=== PATIENT | male | born 1955 | race Two or more races ===

== ENCOUNTER 2016-06-04 09:25 | Inpatient (IN) | payer OTHER ==
[~2016-06-04] VITALS: Ht 165.1 cm; Wt 71.0 kg
[2016-06-04 09:31] VITALS: BP 180/114; PULSE 86; RESP 12; O2SAT 98
--- NOTE | 2016-06-04 09:49 | ED.REPORT ---
HPI-Chest Pain 40 and Over Date of Service Jun 04, 2016 ED Provider: The patient is a 61 year old male with history of hypertension who presents to the emergency department complaining of left-sided chest pain that has been ongoing over the last 2 weeks. His pain does not radiate anywhere else. His pain is worse with exertion. He has also noticed shortness of breath and bilateral shoulder pain.He denies abdominal pain, nausea, vomiting, diaphoresis , fever or chills. He does not smoke tobacco. He denies history of heart problems. Nursing Notes Stated Complaint: POSSIBLE HEART PROBLEMS Chief Complaint: Chest Pain Nursing Notes Reviewed: Yes Allergies: Coded Allergies: No Known Allergies (Unverified , 06/04/16) General Time Seen by MD: 09:49 Chief Complaint Chest pain Hx Obtained From: Patient Arrived By: Walk-in Sudden in Onset?: No Onset Occurred: More than a week ago... (2 weeks) Symptom Duration: Since onset Location: : Chest left Quality: Painful Radiation: : Shoulder left: Shoulder right Severity: Current: Pain level 5 out of 10 Severity: Maximum: Pain level 8 out of 10 Recent Healthcare: No recent hospitalization, Recent doctor visit Similar Sx Previous: No Risk Factors PERC Rule Age 50 or over PERC Result: One or more crit "Yes", PERC rule not satisfied Past Medical History Past Medical History Hypertension Arthritis Family History Noncontributory Smoking History Never Smoker Social History Other Social History: Local resident Occupation Works at [employer] Ambulatory Status Independent Review of Systems Constitutional: Denies: Chills, Fever Respiratory: Reports: Shortness of breath Cardiovascular: Reports: Chest pain GI: Denies: Abdominal pain, Nausea, Vomiting Skin: Denies Diaphoresis Complete sys rev & neg: except as marked. Physical Exam Initial Vital Signs Vital Signs (First) Date Time Temp Pulse Resp B/P Pulse Ox O2 Delivery O2 Flow Rate FiO2 06/04/16 09:31 36.4 86 12 180/114 98 Room Air Initial VS: Reviewed Head / Eyes: Atraumatic, Normocephalic, PERRL ENT: Mucous membranes moist, Conjunctiva normal, No scleral icterus Neck: Supple, Non-tender, Full range of motion Lymphatic: No lymphadenopathy Extremities: Vascular intact, Neuro intact, No swelling, No tenderness Skin: Warm, Dry, No cyanosis Neurologic: Alert, Oriented, Nonfocal Psychiatric: Mood/affect normal, Behavior normal, Normal thought content General/Constitutional: Awake, Alert, No acute distress, Well appearing, Cooperative Respiratory / Chest: Breath sounds NL, Breath sounds = bilat, No respiratory distress, No rales, No rhonchi, No wheezing, No stridor Left pectoral muscle tenderness to palpation. Cardiovascular: Heart rate NL, Regular rhythm, Heart sounds NL, No gallop, No murmurs, No rubs, Peripheral circulation NL, Pulses = bilaterally, No gross BP differential Abdomen: Atraumatic, Soft, Non-tender, McBurney's non-tender, No guarding, No rebound, BS normoactive, No distention, No hernia, No palpable mass Interpretation & Diagnostics Lab Results Interpretation Result Diagram: 06/04/16 1000 06/04/16 1000 Test 06/04/16 10:00 06/04/16 12:00 06/04/16 14:10 White Blood Count 10.5th/mm3 (3.8-10.1) Red Blood Count 5.00mil/mm3 (4.40-5.80) Hemoglobin 14.4g/dL (13.8-17.2) Hematocrit 43.8% (41.0-50.0) Mean Corpuscular Volume 87.6fL (81-100) Mean Corpuscular Hemoglobin 28.8pg (27.0-35.0) Mean Corpuscular Hemoglobin Concent 32.9% (32.0-37.0) Red Cell Distribution Width 13.1% (12.3-15.4) Platelet Count 231bil/L (150-400) Neutrophils (%) (Auto) 51.5% (40-74) Lymphocytes (%) (Auto) 37.2% (14-46) Monocytes (%) (Auto) 7.7% (4-12) Eosinophils (%) (Auto) 2.7% (0-5) Basophils (%) (Auto) 0.5% (0-3) D-Dimer 1.1mg/L (<0.50) Sodium Level 140mEq/L (134-144) Potassium Level 3.8mEq/L (3.5-5.2) Chloride Level 102mEq/L (97-108) Carbon Dioxide Level 25mmol/L (18-29) Blood Urea Nitrogen 15mg/dL (8-27) Creatinine 0.95mg/dL (0.76-1.27) Estimat Glomerular Filtration Rate 85mL/min (>59) Glucose Level 112mg/dL (60-99) Calcium Level 9.4mg/dL (8.5-10.1) Magnesium Level 2.3mg/dL (1.6-2.6) Total Bilirubin 0.5mg/dL (0.0-1.2) Aspartate Amino Transf (AST/SGOT) 25U/L (0-50) Alanine Aminotransferase (ALT/SGPT) 24U/L (0-44) Alkaline Phosphatase 121U/L (25-160) Pro-B-Type Natriuretic Peptide 25.61pg/mL (0-210) Total Protein 7.6g/dL (6.4-8.4) Albumin 4.0g/dL (3.4-5.0) Troponin T 0.010ug/L (0.0-0.011) ECG Interpretation ECG Interpretation: Normal sinus rhythm with a rate of 86 RSR prime pattern in V1 and V2 No acute ischemic changes Time: 09:59 Interpreted by: ED physician ECG Interpretation: Unchanged from prior EKG Time: 11:38 Interpreted by: ED physician X-Ray Chest Interpretation Chest Xray Interpretation: IMPRESSION: No acute cardiopulmonary disease. Dictated by: Jay Mena M.D. on 06/04/2016 at 11:15 Interpretation / Wet Read by: Interpret - Radiologist CT Chest Interpretation IMPRESSION: 1. No evidence for central pulmonary embolism. 2. Filling defects in the central right inferior pulmonary vein suspicious for pulmonary venous thrombosis. 3. Ectatic ascending thoracic aorta which tapers to normal caliber in the distal aortic arch. The result was discussed with Dr. Kincaid prior to dictation. Dictated by: Jay Mena M.D. on 06/04/2016 at 12:32 Study type: CT pulm angiogram Interpretation / Wet Read by: Interpret - Radiologist, Discussed w radiologist Re-Eval/Medical Decision Med Decision/Clinical Course Chest pain, noted to have pulmonary vein thrombosis which will need anticoagulation and management similar to proximal deep vein thrombosis. Heparinized in the ER. Source of Hx: Old records Time of Eval: 10:44 Re-Evaluation/Progress Note: The patient's pain improved with Morphine and Nitroglycerin. Time of Eval: 11:32 Re-Evaluation/Progress Note: Discussed plan for CT. The patient would like something for anxiety before the scan. Time of Eval: 13:30 Re-Evaluation/Progress Note: Rechecked the patient. Discussed results, diagnosis, and plan for admission. All questions were addressed. Consultation #1: Referral / Consult Name: Juarez Mckinley MD Consulted With: Cardiology Call Returned at: 13:26 Mathematical Sciences Professor: Agrees with eval, Agrees with plan Note: He recommends admission and anticoagulation. Consultation #2: Referral / Consult Name: Nilesh Cook MD Consulted With: Hospitalist Requested Call at: 13:31 Call Returned at: 13:37 Mathematical Sciences Professor: Will see patient, Agrees with eval, Agrees with plan, Accepts admit Counseled Regarding: Diagnosis, Lab results, Need for admission Discharge & Departure Primary Impression: Thrombus of pulmonary vein Additional Impression: Chest pain Chest pain type: unspecified Qualified Code: R07.9 - Chest pain, unspecified Disposition: ADMITTED TO HOSPITAL Discharge Condition All VS Reviewed: Yes Condition: Stable Crit Care Except Billable Proc Time Spent: 30-74 minutes Services Performed: Patient management by me, Time spent at bedside, Reviewing test results Critical Care Notes: See MDM Scribe Attestation Portions of this note were transcribed by Jaymie Jones. I, Dr. Kincaid personally performed the history, physical exam and medical decision-making; I reviewed and confirmed the accuracy of the information in the transcribed note. Signed by: Gudelia Galaviz, 06/04/2016 and 1345. Tam Kincaid DO Jun 04, 2016 09:49 Jaymie Jones Jun 04, 2016 09:52
[2016-06-04] MEDS ORDERED: Ondansetron 2 mg/mL 2 mL Inj IVPUSH ONE (10:00)
[2016-06-04 10:12] LABS: BASOPHILS % (AUTO) 0.5 % (0-3); EOSINOPHILS % (AUTO) 2.7 % (0-5); MONOCYTES % (AUTO) 7.7 % (4-12); Mean Corpuscular Hemoglobin 28.8 pg (27.0-35.0); Mean Corpuscular Volume 87.6 fL (81-100); NEUTROPHILS % (AUTO) 51.5 % (40-74); Platelet Count 231 bil/L (150-400)
[2016-06-04 10:40] LABS: TROPONIN T 0.01 ug/L (0.0-0.011)
[2016-06-04 10:51] LABS: Magnesium 2.3 mg/dL (1.6-2.6)
--- NOTE | 2016-06-04 11:17 | DRSVH ---
PROCEDURE: X-RAY CHEST ONE VIEW, PORTABLE ([id number]) INDICATIONS: chest pain TECHNIQUE: One view of the chest was acquired. COMPARISON: None. FINDINGS: Surgical changes and devices: None. Lungs and pleura: No pleural effusions or pneumothorax. Lungs are clear. Mediastinum: Mediastinal contours appear normal. Heart size is normal. Bones and chest wall: No suspicious bony lesions. Overlying soft tissues appear unremarkable. IMPRESSION: No acute cardiopulmonary disease. Dictated by: Jay Mena M.D. on 06/04/2016 at 11:15 Approved by: Jay Mena M.D. on 06/04/2016 at 11:15
[2016-06-04] MEDS ORDERED: Ondansetron 2 mg/mL 2 mL Inj IVPUSH PRN ×3 (12:35→14:00)
--- NOTE | 2016-06-04 12:56 | DRSVH ---
PROCEDURE: CT ANGIO CHEST PULMONARY EMBOLISM ([id number]) INDICATIONS: 61 year-old man with chest pain, elevated ddimer. TECHNIQUE: After the administration of intravenous contrast, 2 mm thick sections acquired from the pulmonary api ho to the posterior costophrenic angles. 3-dimensional maximum intensity projection (MIP) coronal a nd sagittal reformats were then acquired through the thorax. For radiation dose reduction, the follo wing was used: automated exposure control, adjustment of mA and/or kV according to patient size. COMPARISON: [facility], CR, XR CHEST 1VW (PORTABLE), 06/04/2016, 10:11. FINDINGS: Image quality: Excellent. Pulmonary arteries: Pulmonary arteries are normal in size, and demonstrate no intraluminal filling d efects to suggest central pulmonary embolism. Lungs and pleura: Lungs are clear. No pleural effusions or pneumothorax. Central and peripheral ai rways are patent. Mediastinum: There are filling defects in the right inferior pulmonary vein extending centrally just before the left atrium. Heart size is normal, without pericardial effusion. No mediastinal or hilar adenopathy. The ascending thoracic aorta is mildly enlarged measuring 4.1 cm, but tapering to sheron l caliber at level of distal aortic arch. Esophagus is normal in caliber, without hiatal hernia. Bones and chest wall: No suspicious bony lesions. Ribs and thoracic spine appear intact throughout. Thyroid gland is normal. No axillary or supraclavicular adenopathy. Abdomen: Visualized upper abdominal solid organs appear normal in the early arterial phase of enhanc ement. IMPRESSION: 1. No evidence for central pulmonary embolism. 2. Filling defects in the central right inferior pulmonary vein suspicious for pulmonary venous throm bosis. 3. Ectatic ascending thoracic aorta which tapers to normal caliber in the distal aortic arch. The result was discussed with Dr. Kincaid prior to dictation. Dictated by: Jay Mena M.D. on 06/04/2016 at 12:32 Approved by: Jay Mena M.D. on 06/04/2016 at 12:54
[2016-06-04] MEDS ORDERED: Heparin 5,000 Unit/mL Inj IVPUSH ONE (13:30)
[2016-06-04] MEDS ORDERED: Heparin 25K Unit/500mL 0.45 NS 25,000 UNIT in IV Premix 1 EACH IV ONE (13:30)
[2016-06-04] MEDS ORDERED: Alum-Mag Hydrox-Simeth 30 mL Suspension PO PRN ×2 (13:55→14:00)
[2016-06-04] MEDS ORDERED: Polyethylene Glycol (PEG) 17 Gm Powder PO PRN (14:00)
[2016-06-04 15:59] VITALS: BP 146/96; PULSE 94; RESP 19; O2SAT 96
[2016-06-04 16:19] VITALS: BP 170/108; PULSE 88; RESP 16; O2SAT 96
[2016-06-04 16:26] VITALS: PULSE 96
[2016-06-04] MEDS ORDERED: Heparin 5,000 Unit/mL Inj IVPUSH PRN (18:05)
[2016-06-04] MEDS ORDERED: Heparin 25K Unit/500mL 0.45 NS 25,000 UNIT in IV Premix 1 EACH IV SCH (18:05)
--- NOTE | 2016-06-04 18:32 | NUR ---
Admit Patient admitted to room 2004 from ED where he was seen for Chest pain x 2 weeks. Patient states he has a "little bit of chest pain sometimes" but does not give a number. Patient appears relaxed, no facial grimacing or clutching. VSS. No dyspnea noted. A&Ox 3. Patient resting in bed, call light within reach and all needs met.
[2016-06-04 20:03] VITALS: BP 152/93; PULSE 78; RESP 20; O2SAT 97
--- NOTE | 2016-06-04 20:31 | PCM.HPMED ---
Subjective Date of Service Jun 04, 2016 Primary Provider: Admitting Physician: Nilesh Cook MD Primary Care Physician: Precious Jerez MD Attending Physician: Nilesh Cook MD Chief Complaint: "chest pain" History of Present Illness: Mr. Oswald Lam is a 61 year old man with history of hypertension who presents to the emergency department complaining of central chest pain that has been intermittent over the last 2 weeks. Today, it lasted all day. He describes it as sharp and tight. His pain does not radiate anywhere else. His pain is worse with exertion and improves with rest. He has associated shortness of breath and pain in his bilateral shoulders. He has had a cough for the past couple of months that is not productive. He does not have fever, chills, diaphoresis, headache, blurred vision, rhinorrhea, abdominal pain, nausea, vomiting, weight loss, numbness, tingling, leg pain, or blood in his stools. He does not smoke cigarettes. He does not have known family history of heart disease. He reports a similar episode in [place], [place] where his blood pressure was 300/258 and he had syncope in 2006. He states that they did a procedure on his heart at that time. He does not remember the name of the hospital. He saw a doctor on Wednesday and told he had a viral illness. Review of Systems: A comprehensive review of systems was conducted with the patient and found to be negative except as above in the History of Present Illness. Allergies Coded Allergies: hydrochlorothiazide (Verified Adverse Reaction, Intermediate, sleepy all day, 06/04/16) Home Medications Aspirin daily Aleve as needed Losartan 25 mg daily Vitamins PMH Hypertension Arthritis Surgical History Patient only reports having sutures for a right thumb partial amputation secondary to getting it caught inside a machine and sutures for a right upper arm injury. He denies any surgeries. Family History Mother has diabetes mellitus, depression Father from natural causes Social History Occupation: works at [employer] ? Hx Alcohol Use: No Hx Substance Use: No Smoking Status: Never Smoker Living Arrangement: with Family Exam Vital Signs Vital Sign - Last Date Time Temp Pulse Resp B/P Pulse Ox O2 Delivery O2 Flow Rate FiO2 06/04/16 20:03 36.6 78 20 152/93 97 Room Air Exam General: No acute distress, well-developed, well-nourished, appropriately interactive HEENT: Normocephalic, atraumatic. External ears without defect. Pupils equal, round, and reactive to light and accommodation. Anicteric sclerae, moist conjunctivae, and no lid lag. Oropharynx free of erythema and cobble stoning with moist mucosa. Neck: Supple with full range of motion. No jugular venous distension. No bruits. No lymphadenopathy or thyromegaly. Cardiovascular: Regular rate and rhythm with no murmurs, rubs, or gallops appreciated Pulmonary: Clear to auscultation bilaterally with no crackles, wheezes, or rhonchi. Normal respiratory effort with no use of accessory muscles. Abdomen: Bowel tones present. Soft, nontender, nondistended. No hepatosplenomegaly or masses appreciated. Extremities: Right thumb partial amputation. No clubbing, cyanosis, edema, or lymphadenopathy appreciated. Skin: Normal temperature, turgor, and texture; no rash, ulcers, or subcutaneous nodules appreciated. Neurological: Cranial nerves grossly intact. Normal muscle strength, tone, and bulk. Reflexes, coordination, and sensory function within normal limits. No known gait impairment. Psychiatric: Normal mood and affect. Alert and oriented to person, place, and time. Lab and Diagnostics Result Diagram: 06/04/16 1000 06/04/16 1000 X-Rays, CTs and MRIs PROCEDURE: X-RAY CHEST ONE VIEW, PORTABLE IMPRESSION: No acute cardiopulmonary disease. Approved by: Jay Mena M.D. on 06/04/2016 at 11:15 PROCEDURE: CT ANGIO CHEST PULMONARY EMBOLISM IMPRESSION: 1. No evidence for central pulmonary embolism. 2. Filling defects in the central right inferior pulmonary vein suspicious for pulmonary venous thrombosis. 3. Ectatic ascending thoracic aorta which tapers to normal caliber in the distal aortic arch. The result was discussed with Dr. Kincaid prior to dictation. Approved by: Jay Mena M.D. on 06/04/2016 at 12:54 12-lead ECG Normal sinus rhythm with a rate of 86, RSR prime in V1 and V2, No acute ST segment changes Assessment & Plan Mr. Oswald Lam is a 61 year old man with history of hypertension who presents to the emergency department complaining of central chest pain that has been intermittent over the last 2 weeks. 1. Pulmonary vein thrombosis, acute, present on admission. Active. -This is the etiology of patient's chest pain -Troponin negative, BNP within normal limits, but d-dimer is elevated -Heparin drip protocol -Pulmonology consulted and following. Their time and recommendations are appreciated. -Echocardiogram ordered -Coagulation panel pending -Cardiology consultation tomorrow -Monitor for changes in neurologic status 2. Leukocytosis, acute, present on admission. Active. -Pt reports a cough for the past couple of months. He is afebrile. -WBC mildly elevated at 10.5 -Respiratory viral PCR pending -Monitor with CBC 3. Hypertension, chronic, present on admission. Active. -Continued patient's home losartan 25 mg -Monitor vital signs 4. Arthritis, likely osteoarthritis, chronic, present on admission. Stable. -Acetaminophen as needed for pain Ondansetron as needed for nausea/vomiting. Senna and Miralax as needed for constipation. Maalox as needed for heartburn. High risk medications: Heparin drip Morphine IV as needed for pain VTE Prophylaxis: Other (heparin drip) Time spent 40 minutes Attending Statement Patient seen and examined with housestaff, agree with all attached documentation. Kamilah Rogers DO Jun 04, 2016 20:31 Nilesh Cook MD Jun 05, 2016 09:54
[2016-06-04] MEDS ORDERED: LOSA25TA21 PO (20:37)
[2016-06-04] MEDS ORDERED: MULT-1073 PO (20:37)
--- NOTE | 2016-06-04 20:42 | NUR ---
Advance directives Pt.requests advance directive information. Paperwork given per request and message left with social work to follow up with pt. to make sure he understands filling it out.
[2016-06-05] VITALS (9 sets, daily range): BP systolic 136–163; BP diastolic 88–104; PULSE 72–90; RESP 12–18; O2SAT 95–98
[2016-06-05 03:44] LABS: BASOPHILS % (AUTO) 0.6 % (0-3); EOSINOPHILS % (AUTO) 2.7 % (0-5); MONOCYTES % (AUTO) 6.7 % (4-12); Mean Corpuscular Hemoglobin 29.3 pg (27.0-35.0); NEUTROPHILS % (AUTO) 56.3 % (40-74); Platelet Count 247 bil/L (150-400)
--- NOTE | 2016-06-05 05:15 | NUR ---
Pain/Heparin Pt stated that he has a little bit of chest pain, would not give number, pt states this CP is unchanged and is not worse, instructed pt to let nursing know if pain becomes different or worse. Pt is currently on Heparin gtt protocol for DVT/PE pt is at 14 u/kg/hr VSS and Tele SR 60's.
--- NOTE | 2016-06-05 11:16 | DRSVH ---
[facility] [address] [place] [place] [address] Echocardiogram Report Name: LETTY AMAYA Study Date: 06/05/2016 Height: 65 in Hospital Exam Location: [facility] Weight: 15 9 lb Gender: Male BSA: 1.8 m2 : 1955 Age: 61 yrs BP: 163/10 4 mmHg Reason For Study: Pulmonary vein thrombosis Ordering Physician: HOSPITALIST [facility] Performed By: Alejandro Cruz Referring Physician: GAMAL SENIOR Interpretation Summary 1) Mild concentric left ventricular hypertrophy with normal size, wall motion, and systolic function (EF 60-65)%. 2) Normal right ventricular size and function. 3) No significant valvular abnormalities. 4) Mildly dilated ascending aorta (diameter 4cm) 5) No prior Echo available for comparison. Procedure: A two-dimensional transthoracic echocardiogram with color flow and Doppler was performed. The study quality was technically adequate. There is no prior echocardiogram noted for this patient. The patient was in normal sinus rhythm during the exam. Left Ventricle: The left ventricle is normal in size. There is mild concentric left ventricular hypertrophy. The ejection fraction is estimated to be 60-65%. Left ventricular systolic function is normal. Left ventricular wall motion is normal. Right Ventricle: The right ventricle is normal in size, thickness and function. Atria: The left atrial size is normal. No left atrial mass or thrombus visualized. Right atrium is small. The interatrial septum is intact with no evidence for an atrial septal defect. Mitral Valve: The mitral valve leaflets appear mildly thickened, but open well. There is no mitral regurgitation noted. Aortic Valve: The aortic valve is trileaflet. The aortic valve opens well. There is no aortic valve stenosis. There is trace aortic regurgitation. Tricuspid Valve: The tricuspid valve is normal. There is a trace or physiologic amount of tricuspid regurgitation. Pulmonary artery pressures cannot be estimated because of the lack of a measurable TR jet velocity. Pulmonic Valve: The pulmonic valve is not well visualized. There is a trace or physiologic amount of pulmonic regurgitation. Great Vessels: The aortic root is normal size. The ascending aorta is mildly enlarged. The pulmonary artery is normal size. The IVC is of normal diameter and collapses greater than 50% with a sniff. This suggests a low right atrial pressure of 3 mm Hg. Pericardium/ Pleura There is no pericardial effusion. There is no pleural effusion. MMode/2D Measurements & Calculations LVIDd: 4.0 cm RA long axis LVOT diam LVIDs: 2.6 cm LA A2 area: 14.6 cm FS: 34.9 % LA A4 area: 13.8 cm RA area AoV Opening EPSS: 0.60 cm LA length (vol): 4.7 cm IVSd: 1.1 cm LA vol: 36.4 ml : 10.7 cm Ao root diam LVPWd: 1.2 cm LA vol index RA vol : 19.9 ml asc Aorta RA Diam: 4.0 cm IVC diam: 1.3 cm : 11.1 mm2 LV kaplan. diameter/BSA LV sys. diameter/BSA TAPSE: 1.9 cm (cm/m^2): 2.2 (cm/m^2): 1.5 Doppler Measurements & Calculations Ao V2 max: 104.3 cm/secMV E max fei MV E/A: 0.87 PA V2 max Ao max P.4 mmHg : 57.1 cm/sec Med Peak E' Fei : 54.3 cm/sec Ao mean P.2 mmHg MV A max fei PA mean PG LVOT Max Fei : 65.7 cm/sec E/E' med: 11.3 : 0.65 mmHg : 66.4 cm/sec Lat Peak E' Fei MAGDALENA(I,D): 2.0 cm sev ratio: 0.74 E/E' lat: 12.0 E/e' average MV dec time: 0.16 sec Ao V2 mean LV V1 max PG PA V2 mean : 69.2 cm/sec : 38.5 cm/sec Ao V2 VTI: 20.1 cmLV V1 VTI: 14.9 cm PA pr(Accel) MAGDALENA(V,D): 1.7 cm2 : 49.4 mmHg MAGDALENA indexed to BSA (cm^2/m^2): 1.1 Reading Physician:11:16 AM
--- NOTE | 2016-06-05 11:43 | NUR ---
Case Management: Clarification of patient status:inpatient per MD order. Cinthia Wagner RN
--- NOTE | 2016-06-05 11:46 | PCM.PNMED ---
Subjective Date of Service Jun 05, 2016 Subjective Mr. Oswald Lam is a 61 year old man with history of hypertension who presents to the emergency department complaining of central chest pain that has been intermittent over the last 2 weeks. He continues to have intermittent chest pain that is more mild compared to yesterday. He does not have headache, vision changes, numbness, and tingling. Exam Vital Signs Vital Sign - Last Date Time Temp Pulse Resp B/P Pulse Ox O2 Delivery O2 Flow Rate FiO2 06/05/16 05:14 73 06/05/16 04:53 36.5 18 148/88 95 Room Air Intake and Output 06/04/16 06/04/16 06/05/16 Cumulative From/Thru 15:00 23:00 07:00 06/04/16 09:31 - 06/05/16 06:22 Intake Total 300 ml 611 ml 911 ml Output Total 0 ml 550 ml 550 ml Balance 300 ml 61 ml 361 ml Intake Oral 0 ml 400 ml 400 ml IV Total 300 ml 211 ml 511 ml Output Urine Total 0 ml 550 ml 550 ml Exam General: No acute distress, well-developed, well-nourished, appropriately interactive HEENT: Normocephalic, atraumatic. External ears without defect. Pupils equal, round, and reactive to light and accommodation. Anicteric sclerae, moist conjunctivae, and no lid lag. Oropharynx free of erythema and cobble stoning with moist mucosa. Neck: Supple with full range of motion. No jugular venous distension. No bruits. No lymphadenopathy or thyromegaly. Cardiovascular: Regular rate and rhythm with no murmurs, rubs, or gallops appreciated Pulmonary: Clear to auscultation bilaterally with no crackles, wheezes, or rhonchi. Normal respiratory effort with no use of accessory muscles. Abdomen: Bowel tones present. Soft, nontender, nondistended. No hepatosplenomegaly or masses appreciated. Extremities: Right thumb partial amputation. No clubbing, cyanosis, edema, or lymphadenopathy appreciated. Skin: Normal temperature, turgor, and texture; no rash, ulcers, or subcutaneous nodules appreciated. Neurological: Cranial nerves grossly intact. Normal muscle strength, tone, and bulk. Reflexes, coordination, and sensory function within normal limits. No known gait impairment. Psychiatric: Normal mood and affect. Alert and oriented to person, place, and time. IVs and Medications Medications Reviewed: Medications were reviewed in detail Lab and Diagnostics Result Diagram: 06/05/1631406/05/16314 X-Rays, CTs and MRIs PROCEDURE: X-RAY CHEST ONE VIEW, PORTABLE IMPRESSION: No acute cardiopulmonary disease. Approved by: Jay Mena M.D. on 06/04/2016 at 11:15 PROCEDURE: CT ANGIO CHEST PULMONARY EMBOLISM IMPRESSION: 1. No evidence for central pulmonary embolism. 2. Filling defects in the central right inferior pulmonary vein suspicious for pulmonary venous thrombosis. 3. Ectatic ascending thoracic aorta which tapers to normal caliber in the distal aortic arch. The result was discussed with Dr. Kincaid prior to dictation. Approved by: Jay Mena M.D. on 06/04/2016 at 12:54 12-lead ECG Normal sinus rhythm with a rate of 86, RSR prime in V1 and V2, No acute ST segment changes Cardiac Echo Impressions Echocardiogram Report Interpretation Summary 1) Mild concentric left ventricular hypertrophy with normal size, wall motion, and systolic function (EF 60-65)%. 2) Normal right ventricular size and function. 3) No significant valvular abnormalities. 4) Mildly dilated ascending aorta (diameter 4cm) 5) No prior Echo available for comparison. Reading Physician:11:16 AM Assessment & Plan Mr. Oswald Lam is a 61 year old man with history of hypertension who presents to the emergency department complaining of central chest pain that has been intermittent over the last 2 weeks. 1. Pulmonary vein thrombosis, acute, present on admission. Active. -This is the etiology of patient's chest pain -Troponin negative, BNP within normal limits, but d-dimer is elevated. Homocysteine within normal limits. -Echocardiogram as above, normal EF. -Heparin drip protocol -Pulmonology consulted and following. Their time and recommendations are appreciated. -Coagulation panel pending -Cardiology consulted and recommended warfarin as an anti-coagulant, and if records from [place] are obtained and reveal additional cardiac history, then cardiology may need to be consulted further. -Monitor for changes in neurologic status 2. Leukocytosis, acute, present on admission. Active. -Pt reports a cough for the past couple of months. He is afebrile. -WBC mildly elevated at 10.6 -Respiratory viral PCR negative -Monitor with CBC 3. Hypertension, chronic, present on admission. Active. -Continued patient's home losartan 25 mg -Monitor vital signs 4. Arthritis, likely osteoarthritis, chronic, present on admission. Stable. -Acetaminophen as needed for pain Ondansetron as needed for nausea/vomiting. Senna and Miralax as needed for constipation. Maalox as needed for heartburn. High risk medications: Heparin drip Pain Evaluation: Adequate Pain Control VTE Prophylaxis: Other (heparin drip) Resuscitation Status: CPR: Attempt Resuscitation Time spent 35 minutes Attending Statement Patient seen and examined with house staff. Agree with all attached documentation. Kamilah Rogers DO Jun 05, 2016 06:44 Nilesh Cook MD Jun 06, 2016 07:39
--- NOTE | 2016-06-05 12:25 | NUR ---
Social Work: Screen D: Per EMR review, pt is a 61 year old male admitted for pulmonary vein thrombosis. Pt initially listed at self-pay but upon review of process accounts, pt has insurance through [employer]. PCP is Precious Jerez MD. NOK Is Radha Young, , . Readmit score not entered at this time. Advanced directives information provided to pt by bedside RN. Upon further review, pt is from [place] with his spouse. He is I at baseline. Pt currently on bedrest but was up to the [facility]. Pt currently on a heparin drip. STITCH BURNISHER attempted to meet with pt at bedside to review advanced directives; pt with staff pharmacist. STITCH BURNISHER will return at a later time. A: Pt who is I at baseline. P: Anticipate pt to likely discharge home via POV pending safe demonstration of ambulation. STITCH BURNISHER to continue to follow and attempt to meet with pt to confirm understanding of advanced directives. ALBAN Spangler
--- NOTE | 2016-06-05 18:09 | NUR ---
Heparin/Pt teaching Cardiac: Pt reports mild CP 3/10, which was same as previous shifts. CP resolved this afternoon. Tele: SR 60s. DVT Heparin therapy continues, anticoagulation therapy was explained and pt voiced understanding. Pt was provided ed material on heart healthy diet. Resp: Pt denies SOB, SpO2 97% on RA. GI/: Pt denies N/V Neuro: A&Ox3, BARRETO
[2016-06-06 03:16] VITALS: BP 146/98; PULSE 71; O2SAT 96
[2016-06-06 04:20] LABS: BASOPHILS % (AUTO) 0.7 % (0-3); EOSINOPHILS % (AUTO) 2.7 % (0-5); MONOCYTES % (AUTO) 5.1 % (4-12); Mean Corpuscular Volume 88.6 fL (81-100); NEUTROPHILS % (AUTO) 53.7 % (40-74); Platelet Count 237 bil/L (150-400)
[2016-06-06 05:31] VITALS: PULSE 75
--- NOTE | 2016-06-06 05:52 | NUR ---
Pain, heparin and rest. Patient reports 1-2 out of 10 chest pain that is in the same location as prior shifts. Patient reports that his pain is feeling slightly better. Patient denies, SOB, N/V, weakness and dizziness. Heparin infusion continues to infuse per DVT/PE protocol. No signs of bleeding present at this time. Patient rested comfortably in bed for most of the night and reports no needed at this time.
[2016-06-06 09:19] VITALS: BP 163/104; PULSE 92; RESP 16; O2SAT 95
[2016-06-06 10:05] VITALS: PULSE 90
[2016-06-06 11:59] VITALS: BP 140/102; PULSE 97; RESP 16; O2SAT 93
--- NOTE | 2016-06-06 14:35 | PCM.DIMED ---
Kamilah Rogers DO 06/06/16 1235: Discharge Instructions Date of Service Jun 06, 2016 Dates of Hospitalization Jun 04, 2016 at 15:55 Discharge Diagnosis Discharge Diagnosis 1. Pulmonary vein thrombosis 2. Leukocytosis 3. Hypertension 4. Arthritis 5. Hyperglycemia Diet Heart Healthy Activity Limited until seen by PCP Call your provider Fever or Chills, Shortness of breath, Bleeding, Weakness (unilateral), Other ( headache, blurred vision, or trouble talking) Patient Instructions For the blood clot in your pulmonary vein (a blood vessel in your lung), start taking Lovenox (enoxaparin) injections. You had 1 injection today at 12:00 PM so your next injection should be at midnight tonight. You should do 1 injection every 12 hours for the next 5 days. Start taking warfarin 5 mg once daily. You continue the warfarin pills even after you stop the injections. You need to have your blood checked in 3-4 days to make sure that the warfarin is the correct dose for you. Be careful of falls. Do not climb ladders. If you see bright, red blood in your stools or have dark, tarry stools, then you should go to the hospital. You will need a repeat CT scan of your lungs in 3 months. I have increased your blood pressure medication to losartan 50 mg once daily. Follow up with your primary care provider in 3-4 days to have blood work checked and to review your medications. I recommend taking 7 days off of work. Follow-up Provider: OTHER,PHYSICIAN Follow-up with PCP in: Other (3-4 days with ALICIA Parra in [place], [place]) Nilesh Cook MD 06/06/16 1504: Discharge Instructions Attending's Statement Patient seen and examined with house staff. Agree with all attached documentation. Kamilah Rogers DO Jun 06, 2016 12:35 Nilesh Cook MD Jun 06, 2016 15:04
[2016-06-06] MEDS ORDERED: WARF5TAB7 PO (14:38)
[2016-06-06] MEDS ORDERED: LOV80 SUBQ (14:38)
[2016-06-06] MEDS ORDERED: LOSA50TA37 PO (14:38)
--- NOTE | 2016-06-06 16:54 | NUR ---
Discharge Pt discharged home today at 1645. Pt off floor via ambulation with all of his belongings in the company of the [employer] to private vehicle driven by his family. Pt was given prescriptions and education materials on meds, heart healthy diet and instructions for administering a sub-q injection. Pt was given a warfarin booklet and was given education regarding warfarin, pt voices understanding. Pt was also comprehensively instructed in self-administering a sub-q lovenox shot. Pt demonstrated technique and voiced understanding.
[2016-06-07 15:06] LABS: Protein C Antigen 80 % (60-150)
--- NOTE | 2016-06-08 20:57 | PCM.DC.MED ---
Discharge Summary Date of Service Jun 06, 2016 Dates of Hospitalization Date of Hospital Admission Jun 04, 2016 at 15:55 Date of Discharge: Jun 06, 2016 Providers: Admitting Physician: Nilesh Cook MD Primary Care Physician: Precious Jerez MD Attending Physician: Nilesh Cook MD Diagnosis at Time of Discharge Diagnosis at Time of Discharge 1. Pulmonary vein thrombosis 2. Leukocytosis 3. Hypertension 4. Arthritis 5. Hyperglycemia Procedures XRay, CTs & MRIs PROCEDURE: X-RAY CHEST ONE VIEW, PORTABLE IMPRESSION: No acute cardiopulmonary disease. Approved by: Jay Mena M.D. on 06/04/2016 at 11:15 PROCEDURE: CT ANGIO CHEST PULMONARY EMBOLISM IMPRESSION: 1. No evidence for central pulmonary embolism. 2. Filling defects in the central right inferior pulmonary vein suspicious for pulmonary venous thrombosis. 3. Ectatic ascending thoracic aorta which tapers to normal caliber in the distal aortic arch. The result was discussed with Dr. Kincaid prior to dictation. Approved by: Jay Mena M.D. on 06/04/2016 at 12:54 ECG 12 Lead Normal sinus rhythm with a rate of 86, RSR prime in V1 and V2, No acute ST segment changes Cardiac Echo Impression Echocardiogram Report Interpretation Summary 1) Mild concentric left ventricular hypertrophy with normal size, wall motion, and systolic function (EF 60-65)%. 2) Normal right ventricular size and function. 3) No significant valvular abnormalities. 4) Mildly dilated ascending aorta (diameter 4cm) 5) No prior Echo available for comparison. Reading Physician:11:16 AM Brief History From the history and physical performed by Dr. Kamilah Rogers on 06/04/2016: Mr. Oswald Lam is a 61 year old man with history of hypertension who presents to the emergency department complaining of central chest pain that has been intermittent over the last 2 weeks. Today, it lasted all day. He describes it as sharp and tight. His pain does not radiate anywhere else. His pain is worse with exertion and improves with rest. He has associated shortness of breath and pain in his bilateral shoulders. He has had a cough for the past couple of months that is not productive. He does not have fever, chills, diaphoresis, headache, blurred vision, rhinorrhea, abdominal pain, nausea, vomiting, weight loss, numbness, tingling, leg pain, or blood in his stools. He does not smoke cigarettes. He does not have known family history of heart disease. He reports a similar episode in [place], [place] where his blood pressure was 300/258 and he had syncope in 2006. He states that they did a procedure on his heart at that time. He does not remember the name of the hospital. He saw a doctor on Wednesday and told he had a viral illness. Hospital Course Mr. Oswald Lam is a 61 year old man with history of hypertension who presents to the emergency department complaining of central chest pain that has been intermittent over the last 2 weeks. 1. Pulmonary vein thrombosis, acute, present on admission. Active. -This is the etiology of patient's chest pain -Troponin negative, BNP within normal limits, but d-dimer is elevated. Homocysteine within normal limits. -Echocardiogram as above, normal EF. -Patient was on heparin drip protocol -Pulmonology consulted and following. Their time and recommendations were appreciated. They agreed with the plan. -Cardiology consulted and recommended warfarin as an anti-coagulant. -Coagulation panel: protein C, protein S, and antithrombin III antigen within normal limits. Factor V Leiden still pending at this time. -Patient was started on Lovenox 80 mg BID for 5 days while starting warfarin 5 mg once daily until his INR is therapeutic. He needs to have a PT/INR checked in 3-4 days from discharge. -It is recommended that the patient have a follow up CT chest angiogram in 3 months. 2. Leukocytosis, acute, present on admission. Resolved. -Pt reports a cough for the past couple of months. He is afebrile. -WBC mildly elevated at 10.6 but improved to 8.8 -Respiratory viral PCR negative 3. Hypertension, chronic, present on admission. Active. -Continued patient's home losartan 25 mg initially but his blood pressure remained elevated -Increased losartan to 50 mg -Recommend continued monitoring at follow up appointment with primary care provider 4. Arthritis, likely osteoarthritis, chronic, present on admission. Stable. -Acetaminophen as needed for pain 5. Hyperglycemia, chronicity unknown, present on admission. -HgbA1c 6.1% -Recommended continued monitoring as an outpatient Exam Vital Signs (Last) Date Time Temp Pulse Resp B/P Pulse Ox O2 Delivery O2 Flow Rate FiO2 06/06/16 11:59 37.2 97 16 140/102 93 Room Air Exam General: No acute distress, well-developed, well-nourished, appropriately interactive HEENT: Normocephalic, atraumatic. External ears without defect. Pupils equal, round, and reactive to light and accommodation. Anicteric sclerae, moist conjunctivae, and no lid lag. Oropharynx free of erythema and cobble stoning with moist mucosa. Neck: Supple with full range of motion. No jugular venous distension. No bruits. No lymphadenopathy or thyromegaly. Cardiovascular: Regular rate and rhythm with no murmurs, rubs, or gallops appreciated Pulmonary: Clear to auscultation bilaterally with no crackles, wheezes, or rhonchi. Normal respiratory effort with no use of accessory muscles. Abdomen: Bowel tones present. Soft, nontender, nondistended. No hepatosplenomegaly or masses appreciated. Extremities: Right thumb partial amputation. No clubbing, cyanosis, edema, or lymphadenopathy appreciated. Skin: Normal temperature, turgor, and texture; no rash, ulcers, or subcutaneous nodules appreciated. Neurological: Cranial nerves grossly intact. Normal muscle strength, tone, and bulk. Reflexes, coordination, and sensory function within normal limits. No known gait impairment. Psychiatric: Normal mood and affect. Alert and oriented to person, place, and time. Test 06/04/16 10:00 06/04/16 12:00 06/04/16 14:10 06/05/16 19:29 D-Dimer 1.1mg/L (<0.50) Magnesium Level 2.3mg/dL (1.6-2.6) Pro-B-Type Natriuretic Peptide 25.61pg/mL (0-210) Troponin T 0.010ug/L (0.0-0.011) Homocysteine 6.2umol/L (0.0-15.0) Hold [place] Top Tube Received (Received) Test 06/06/16 04:15 06/06/16 11:10 White Blood Count 8.8th/mm3 (3.8-10.1) Red Blood Count 5.27mil/mm3 (4.40-5.80) Hemoglobin 15.3g/dL (13.8-17.2) Hematocrit 46.7% (41.0-50.0) Mean Corpuscular Volume 88.6fL (81-100) Mean Corpuscular Hemoglobin 29.0pg (27.0-35.0) Mean Corpuscular Hemoglobin Concent 32.8% (32.0-37.0) Red Cell Distribution Width 13.4% (12.3-15.4) Platelet Count 237bil/L (150-400) Neutrophils (%) (Auto) 53.7% (40-74) Lymphocytes (%) (Auto) 37.6% (14-46) Monocytes (%) (Auto) 5.1% (4-12) Eosinophils (%) (Auto) 2.7% (0-5) Basophils (%) (Auto) 0.7% (0-3) Sodium Level 135mEq/L (134-144) Potassium Level 4.4mEq/L (3.5-5.2) Chloride Level 98mEq/L (97-108) Carbon Dioxide Level 22mmol/L (18-29) Blood Urea Nitrogen 15mg/dL (8-27) Creatinine 0.88mg/dL (0.76-1.27) Estimat Glomerular Filtration Rate 93mL/min (>59) Glucose Level 151mg/dL (60-99) Calcium Level 8.9mg/dL (8.5-10.1) Total Bilirubin 1.0mg/dL (0.0-1.2) Aspartate Amino Transf (AST/SGOT) 28U/L (0-50) Alanine Aminotransferase (ALT/SGPT) 20U/L (0-44) Alkaline Phosphatase 108U/L (25-160) Total Protein 7.4g/dL (6.4-8.4) Albumin 4.1g/dL (3.4-5.0) Activated Partial Thromboplast Time 69.6sec (22.8-33.0) Discharge Medications Discharge Medications Enoxaparin (Lovenox) 80 Mg/0.8 Ml Syringe 80 MG SUBQ Q12 Prescribed by: KAMILAH ROGERS DO Losartan Potassium (Losartan Potassium) 50 Mg Tablet 50 MG PO DAILY Prescribed by: KAMILAH ROGERS DO Multivits-Min/FA/Lycopene/Lut (Centrum Silver Tablet) 1 Each Tablet 1 EACH PO DAILY (Reported) Warfarin Sodium (Warfarin Sodium) 5 Mg Tablet 5 MG PO DAILY Prescribed by: KAMILAH ROGERS DO Followup Plan Disposition: Home, with family Discharge Diet: Heart Healthy Discharge Activity: Limited until seen by PCP Patient Instructions For the blood clot in your pulmonary vein (a blood vessel in your lung), start taking Lovenox (enoxaparin) injections. You had 1 injection today at 12:00 PM so your next injection should be at midnight tonight. You should do 1 injection every 12 hours for the next 5 days. Start taking warfarin 5 mg once daily. You continue the warfarin pills even after you stop the injections. You need to have your blood checked in 3-4 days to make sure that the warfarin is the correct dose for you. Be careful of falls. Do not climb ladders. If you see bright, red blood in your stools or have dark, tarry stools, then you should go to the hospital. You will need a repeat CT scan of your lungs in 3 months. I have increased your blood pressure medication to losartan 50 mg once daily. Follow up with your primary care provider in 3-4 days to have blood work checked and to review your medications. I recommend taking 7 days off of work. Follow-up Provider: OTHER,PHYSICIAN Follow-up with PCP in: Other (3-4 days with ALICIA Parra in [place], [place]) Time spent 45 minutes Attending Statement Patient seen and examined with house staff. Agree with all attached documentation. copies to: [facility] Kamilah Rogers DO Jun 06, 2016 17:40 Nilesh Cook MD Jun 17, 2016 07:15
== END 2016-06-06 16:52 | disposition home or self-care (01) | DRG 176 ==
LOC: SED 09:25 → OBSVTOIN 15:55 → PCC 15:55
PROVIDERS: ADMIT Hospitalist; ATTEND Hospitalist
DX: I26.99 Other pulmonary embolism without acute cor pulmonale (principal); I10 Essential (primary) hypertension; M19.91 Primary osteoarthritis, unspecified site; R73.9 Hyperglycemia, unspecified; M19.90 Unspecified osteoarthritis, unspecified site; D72.829 Elevated white blood cell count, unspecified